=== PATIENT | male | born 1970 | race Caucasian/White ===

== ENCOUNTER 2017-11-24 11:49 | Observation (INO) ==
[2017-11-24] MEDS ORDERED: NORMAL SALINE 10 ML SYRINGE FLUSH IVP PRN ×2 (12:09→13:42)
[2017-11-24] MEDS ORDERED: Sodium Chloride 0.9% 1,000 ML PRIMARY IV ONE (12:09)
[2017-11-24 12:30] LABS: BASOPHILS # (AUTO) 0.02 10*3/UL; BASOPHILS % (AUTO) 0.3 % (0-1); EOSINOPHILS # (AUTO) 0.09 10*3/UL; EOSINOPHILS % (AUTO) 1.5 % (0-8); Hematocrit [HCT] 42.6 % (42.0-52.0); Hemoglobin [HGB] 15.1 g/dL (14.0-18.0); LYMPHOCYTES # (AUTO) 1.44 10*3/uL; MEAN CORPUSCULAR HEMOGLOBIN 30.6 PG (27-31); MEAN CORPUSCULAR HGB CONC 35.4 g/dL (33-37); MEAN CORPUSCULAR VOLUME 86.4 FL (80-90); MEAN PLATELET VOLUME 11.1 FL (7.4-12.2); MONOCYTES # (AUTO) 0.46 10*3/UL (0.3-0.8); MONOCYTES % (AUTO) 7.9 % (5-15); NEUTROPHILS % (AUTO) 65.3 % (50-80); RED BLOOD COUNT 4.93 10^6/uL (4.70-6.10)
[2017-11-24 12:31] LABS: PLATELET MORPHOLOGY COMMENT NORMAL MORPHOLOGY (NORM); RBC MORPHOLOGY COMMENT NORMAL MORPHOLOGY (NORM); WBC MORPHOLOGY COMMENT NORMAL MORPHOLOGY (NORM)
[2017-11-24] MEDS ORDERED: MORPHINE SULFATE 4 MG/1 ML IVP ONE (12:39)
[2017-11-24 12:43] LABS: BLOOD UREA NITROGEN 16 mg/dL (7-22); BUN/CREATININE RATIO 17.77 (6-20); SERUM ALBUMIN 4.6 g/dL (3.5-4.8)
--- NOTE | 2017-11-24 13:17 | DI ---
CT HEAD SCAN WITHOUT IV CONTRAST, 11/24/2017 12:10 PM : Clinical History: Stroke symptoms. Previous Exam: None at this facility. Scans are obtained from the foramen magnum to the vertex without IV contrast. The 4th, 3rd, and lateral ventricles are of normal size, shape, position, and contour for the patient 's age. There are no abnormal areas of increased or decreased density. There is no evidence of an acu te bland or hemorrhagic infarct. There are no extracerebral mantles or shift of the midline structure s. Bone window evaluation is normal. The paranasal sinuses are normal. READING: Normal non contrast CT head scan.
[2017-11-24] MEDS ORDERED: LIDOCAINE W/ SODIUM BICARB 0.5 ML SYR SUBD PRN (13:42)
--- NOTE | 2017-11-24 13:51 | DI ---
MRI BRAIN SCAN WITHOUT IV CONTRAST, 11/24/2017 1:05 PM: Clinical History: Right-sided stroke symptoms. Previous Exam: None at this facility. Sequences: Sagittal T1; Axial ELVIS T2 and FLAIR. Axial diffusion weighted images with ADC mapping were also performed. The 4th, 3rd, and lateral ventricles are of normal size, shape, position, and contour for this patien t's age. There are no focal areas of abnormally increased or decreased signal intensity. Diffusion we ighted imaging with ADC mapping is normal. There are no extracerebral mantels or shift of the midline structures. The paranasal sinuses are normal. Readin. Normal noncontrast MRI brain scan. There is no evidence of an acute hemorrhagic or bland infarct. 2. Diffusion weighted imaging with ADC mapping is normal.
--- NOTE | 2017-11-24 13:59 | PDOC ---
Neuro Symptoms / Deficit HPI - General Chief Complaint: Neurological Complaints Stated Complaint: stroke symptoms Date Seen by Provider: 11/24/17 Time Seen by Provider: 11:55 Source: POSITIVE: Patient, Spouse, EMS Exam Limitations: POSITIVE: No limitations Nurse's Notes Reviewed & Considered: Yes EMS Report Reviewed & Considered: Verbal - History of Present Illness Initial Comments: The patient is a 47-year-old male. 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 He states he got into his pickup and he felt "uncoordinated". He states he felt like his right hand and arm were "weak and numb". He had difficulty inserting the gordon to the ignition of his pickup into the ignition. He felt like the right side of his face was "numb and drooping". He called his on his cell phone and states that his speech was "garbled and slurred. "His confirms this. 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 Upon arrival of the paramedics the patient states he was feeling better and he states that he believes his symptoms have completely resolved upon arrival to the emergency room. He states that for the last 10 days he has had a headache, "mainly behind my right eye". He states he saw a primary care provider for this problem and was started on Augmentin for "sinusitis". Patient does not smoke. He has no known cardiopulmonary problems except some hypertension for which she takes amlodipine. He states he had a pulmonary embolism in 2006. No visual complaints. No GI or symptoms. 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 DENIES: Fever, Chills, Sweating, Chest Pain, Neck Pain, Back Pain, Fainting, Seizure, Altered Mental Status, Disoriented, Confused, Agitated, Trouble Concentrating, Trouble Thinking , Decreased Responsiveness, Unresponsive, Other Usual Ability to Walk/Stand: REPORTS: Walks w/o Assistance Usual Cognition: REPORTS: Alert & Oriented x3 Similar Symptoms Previously: No Recently seen/treated/hospitalized: No Any Prior Injuries Related to Current Complaint?: No - Patient Home Medications Home Medications: Home Medications Aspirin 325 mg PO DAILY 06/27/15 Etodolac [Lodine] 500 mg PO DAILY 06/27/15 - Patient Allergies Allergies/Adverse Reactions: Allergies 3 Allergy/AdvReac Type Severity Reaction Status Date / Time hydrocodone bitartrate Allergy HIVES Verified 11/24/17 12:22 [From Vicodin] Past Medical History - heen HEENT History: Denies History Cardiovascular History: DVTs Respiratory History: Pulmonary Embolism Gastrointestinal History: Denies History Genitourinary History: Denies History Endocrine History: Denies History Musculoskeletal History: Arthritis Neurological History: Denies History Blood Disorders: Denies History Psychiatric History: Denies History Cancer History: Denies History In Past Year Been Physically Harmed or Verbally Threatened: No History of MDRO: No Tobacco Use: Never Smoker Alcohol Use: Rarely Type of alcohol normally used: Beer In the Past 12 Months, Have Used or Abuse Any Substance: None Previous Surgical History: Yes Type / Date of Surgery: LEFT ANKLE X2, BILAT SHOULDER SURGERY Significant Family History: No pertinent family hx Past Medical History Reviewed: Reviewed - No Changes ROS - Limitations ROS Limitations: No Limitations Constitution: REPORTS: Denies Symptoms Cardiovascular: REPORTS: Denies Cardiac Symptoms Respiratory: REPORTS: Denies Resp Symptoms Neurological: REPORTS: Headache, Numbness, Weakness (Transient, right upper extremity and right side of face) Gastrointestinal: REPORTS: Denies GI Symptoms Endocrine: REPORTS: Denies Symptoms Musculoskeletal: REPORTS: Denies MS Symptoms Genitourinary: REPORTS: Denies Symptoms Eyes: REPORTS: Denies Symptoms ENT: REPORTS: Denies Symptoms Skin: REPORTS: Denies Skin Symptoms Lympathic: REPORTS: Denies Lympathic Symptoms Immunologic: POSITIVE: Denies Symptoms Psychiatric: POSITIVE: Denies Psych Symptoms Neuro Symptoms / Deficit Exam - General Appearance General Appearance: POSITIVE: No Acute Distress, Alert - HEENT HEENT: POSITIVE: Head Inspection Nml, Eyes Inspection Nml, Ears Inspection Nml, Nose Inspection Nml, Oral/Dental Inspect. Nml, Pharynx Inspect. Nml, PERRL, EOMI - Pupil Size Pupil Size: 4 mm: Bilateral (PERRLA) - Neuro / Psych Higher Functions: POSITIVE: Oriented to Person, Oriented to Place, Oriented to Time, Normal Speech, Normal Cognition, Appropriate Mood, Appropriate Affect. NEGATIVE: Disoriented to Person, Disoriented to Place, Disoriented to Time, Speech Abnormalities, Cognition Abnormalities, Depressed Mood, Depressed Affect , Abnml Response to Command, No Response to Command, Eyes Open to Command, Slow Response to Command, Inapp Response to Command, Expressive Aphasia, Receptive Aphasia, Abnml Response to Pain, Withdraws to Pain, Flexor to Pain, Extensor to Pain, No Response to Pain, Dysarthria, Other Cranial Nerves: POSITIVE: Normal As Tested, No Evidence of Acute CVA Cerebellar: POSITIVE: Normal As Tested Peripheral Exam: POSITIVE: Sensation Normal, Motor Normal, Reflexes Normal - Neck Neck: POSITIVE: Supple, Non-Tender, No Carotid Bruit - Respiratory Respiratory: POSITIVE: No Respiratory Distress, Breath Sounds Normal - Cardiovascular Cardiovascular: POSITIVE: Regular Rate & Rhythm, Heart Sounds Normal Peripheral Pulses: Radial (R): 2+, Radial (L): 2+ - Abdomen Abdomen: Soft: (All Quadrants), Normal Bowel Sounds: (All Quadrants), Denies Tenderness: (All Quadrants), No Splenomegaly: (All Quadrants), No Hepatomegaly: (All Quadrants), No Guarding: (All Quadrants), No Rebound: (All Quadrants), No Palpable Pulse: (All Quadrants), No Palpabale Mass: (All Quadrants), No Distention: (All Quadrants), No Rigidity: (All Quadrants) - Skin Skin: POSITIVE: Intact, Normal For Race, Warm, Dry, No Rash - Extremities Extremity: Non-Tender: (All Extremities), Normal ROM: (All Extremities), Normal Inspection: (All Extremities) Neuro Symptom/Deficit Progress - Results Reviewed by me Xrays/CTs/US Reviewed by me: Yes Discussed with Radiologist: Yes Radiology Findings: CT scan head without contrast read as normal by radiologist. MRI head without contrast read as normal by radiologist. Lab Results Reviewed by Me: Yes (CBC, CMP, troponin all normal) CBC and BMP: 11/24/17 12:29 11/24/17 12:29 EKG Interpreted/Reviewed By Me:: Yes (normal sinus rhythm; normal) EKG Interpretation:: POSITIVE: Normal Sinus Rhythm, Normal Rate, Normal Intervals, Normal [place], Normal QRS, Normal ST/T - Patient's Progress Pain Medication Addressed: POSITIVE: Yes (Patient given 4 mg of morphine sulfate IV for headache) School/Work Release Addressed: POSITIVE: Not Applicable Re-Examine Time:: 13:30 Re-Examine Comment: Patient has had no further neurologic symptoms while in the emergency room. Case discussed with hospitalist, Dr. Allen, and patient is admitted for further observation, evaluation and treatment. Headache less. Status: POSITIVE: Improved, Re-Examined, Pain Relieved Antibiotics Given: No CVA/Syncope Quality Measure Initiative: POSITIVE: EKG - Consult Consult (If Yes, Name of Consulting MD & Time Called): Yes (Dr. Allen, hospitalist, [id number]) Consulting MD will see pt:: POSITIVE: [facility]mit Counseled: POSITIVE: Patient, Family, RE: Lab Results, RE: Radiology Results, RE : DX, RE: Need for F/U Patient Care Time - Estimated PCT Patient Care Time (In Minutes): 60 Vital Signs - Recent Vital Signs Vital Signs: Vital Signs (Last 8 hours) Temp Pulse Pulse Resp BP BP Pulse Ox 11/24/17 12:25 97.9 F 77 16 137/89 95 11/24/17 11:55 96.8 F 77 18 137/89 95 - VS Reviewed Vital Signs Reviewed: Yes Discharge Clinical Impression: Transient ischemic attack Discharge Disposition: Admit to Inpatient Condition: Stable Date Decision to Admit to Inpatient: 11/24/17 Time Decision to Admit to Inpatient: 13:30
[2017-11-24] MEDS ORDERED: CLOPIDOGREL 75 MG TABLET PO ONE (15:03)
[2017-11-24] MEDS ORDERED: KETOROLAC 15 MG/1 ML VIAL IVP ONE (15:04)
[2017-11-24] MEDS ORDERED: Prochlorperazine Edisylate Inj 10 MG in Sodium Chloride 0.9% 500 ML IV ONE (15:04)
--- NOTE | 2017-11-24 15:11 | PDOC ---
HPI - History of Present Illness Date of Service: 11/24/17 Time of Service: 15:05 Chief Complaint: Right facial weakness History of Present Illness: This very pleasant 47-year-old male with a prior history of pulmonary emboli and DVT, in relation to prior ankle surgeries, who stays on an aspirin, and also has arthritis, who presented today with acute onset of right facial numbness, slight facial droop and word slurring and right arm weakness and numbness and tingling at around 1045 this morning. 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 It is harder for him to describe the words. He felt that was very strange. He went to start the truck , and had trouble getting the keys into the admission. He felt all this along with the numbness, tingling of the right face and right arm was very abnormal and he started to drive towards a hospital. He pulled over, called 911, was brought in for evaluation. A head CT scan here was negative for acute stroke or bleed. He is notably on an aspirin daily to help prevent another blood clot in his lungs. An MRI scan of the brain was negative for acute stroke. He has had a preceding 10 day history of headache that has been described as possible migraine headache or sinusitis. He also feels some fullness under his right mandible and neck region for about the last month. He has not had any fevers chills or cough. The patient is never had anything like this happen before does not have a family history of heart disease. He does not have any cholesterol problems, he does not have diabetes. He does not smoke. He rarely drinks alcohol. He does not have known atrial fibrillation and does not have palpitations. All of the symptoms have resolved and did so spontaneously by the time he was at the hospital. Past Medical History Medical History: 1. Arthritis. 2. History of pulmonary embolism and DVT Surgical History: 1. Left ankle surgeries, multiple. 2. 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 Pertinent Family History: Father had a heart attack. Past Social History: Does not smoke. Quit chewing remotely. 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 Rarely drinks alcohol. Tobacco Use: Never Smoker In the Past 12 Months, Have Used or Abuse Any of the Following Substance: None Alcohol Use: Rarely Medication / Allergies Home Medications: Home Medications 3 Medication Instructions Recorded Confirmed Type Aspirin 325 mg PO DAILY 06/27/15 11/24/17 History Etodolac [Lodine] 500 mg PO DAILY 06/27/15 11/24/17 History Allergies/Adverse Reactions: Allergies 3 Allergy/AdvReac Type Severity Reaction Status Date / Time hydrocodone bitartrate Allergy HIVES Verified 11/24/17 12:22 [From Vicodin] Review of Systems - Review of Systems All Systems: Reviewed & No Additional Complaints Except as Stated (I did a 12 point review systems and it was negative other than that discussed in history present illness and that noted below.) - Mouth/Throat Mouth/Throat Exam: REPORTS: Other (Some neck tenderness mostly along the right aspect of the mandible.) - Respiratory Respiratory: REPORTS: Negative System Review - Cardiovascular Cardiovascular: REPORTS: Negative System Review - Gastrointestinal Gastrointestinal / Abdominal: REPORTS: Negative System Review - Genitourinary Genitourinary: REPORTS: Negative System Review - Musculoskeletal Musculoskeletal: REPORTS: Other (Arthritis of several joints) - Neurological Neurologic: REPORTS: Headache (Present for the last 10 days with some sinus tenderness. Has had some nausea from his headaches as well.) Exam - Vitals Vital Signs: Vital Signs Temperature 97.6 F Temperature Source Temporal Artery Scan Pulse Rate [Pulse Oximeter] 69 Pulse Rate 69 Respiratory Rate 14 Blood Pressure [Left Arm] 126/78 Blood Pressure 126/78 Pulse Ox 93 Oxygen Delivery Method Room Air Height 5 ft 8 in Weight 251 lb 3.2 oz - General General Appearance: No Acute Distress, Cooperative - Head Head Exam: Normal Inspection, Normocephalic, Atraumatic - Eye Eye Exam: POSITIVE: No Scleral Icterus - ENT ENT Exam: POSITIVE: Mucous Membranes Moist - Neck Neck Exam: Normal Inspection, No Tenderness, No Lymphadenopathy, Lymphadenopathy (possible submandibular fullness on right side?), No Thyromegaly Results - Labs CBC and BMP: 11/24/17 12:29 11/24/17 12:29 - EKG Data -: EKG Interpreted by Me (I have ordered an EKG and it is pending.) - Imaging Status: Image Reviewed by Me (I looked at the CT scan of the head and there is no acute blood.), Report Reviewed by Me (I reviewed the MRI scan and it is negative for stroke.) Assessment and Plan - Patient Problems (1) Transient ischemic attack Current Visit: Yes Status: Acute Code(s): G45.9 - Transient cerebral ischemic attack, unspecified (2) Headache Current Visit: Yes Status: Acute Code(s): R51 - Headache Qualifiers: Headache type: unspecified Headache chronicity pattern: acute headache Intractability: intractable Qualified Code(s): R51 - Headache (3) Submandibular gland hypertrophy Current Visit: Yes Status: Acute Code(s): K11.1 - Hypertrophy of salivary gland (4) History of pulmonary embolism Current Visit: Yes Status: Acute Code(s): Z86.711 - Personal history of pulmonary embolism - Assessment / Plan Additional Assessment/Plan Details: Is a very difficult situation, as this is a young patient but can be on several blood thinners as a result of this presentation. Likely this is a transient ischemic attack, but could also be in the differential of complex migraine headache. For now, I think we need to treat this as if it's a transient ischemic attack, complete MRA scans of the head and the neck to evaluate carotid arteries and cerebral vasculature. Echocardiogram to evaluate for potential carotid source of emboli. Also telemetry monitoring to look for atrial fibrillation. I have also ordered an EKG. Because he is on aspirin every day, I think we need to put him on Plavix for now. Start high-dose statin. If indicated, antihypertensive therapy. For now permissive hypertension. Try abortive therapy without steroid as patient states he has side effects from steroids with Toradol and with Compazine. Given the submandibular gland hypertrophy on the right, I'll get a soft tissue scan of the neck to look at this more in depth. We'll do that with contrast. If the patient has underlying atrial fibrillation, it would be beneficial for him to go on something like the novel oral anticoagulants for prevention of stroke and pulmonary emboli, but this could definitely increase his bleeding risk and I discussed this with him. The patient and his family agreed with the plan. He may have had hypercoagulation study done with his primary care provider, I' ll call and find out.
[2017-11-24] MEDS ORDERED: Prochlorperazine Edisylate Inj 10mg/2ml vial IVP ONE (15:15)
[2017-11-24] MEDS ORDERED: POTASSIUM CHLORIDE 20 MEQ TAB PO ONE (15:53)
--- NOTE | 2017-11-24 18:57 | DI ---
MR ANGIOGRAPHY OF THE [place], 11/24/2017 1:42 PM: Clinical History: Right-sided stroke symptoms. TIA. Previous Exam: None at this facility. High resolution axial 3D thin slice time of flight scans are performed for the arterial phase. 3D MIP S reconstructions are obtained. The vertebral arteries are co-dominant. There is no basilar tip aneurysm or aneurysm arising from the vertebral-basilar branches. There are no identifiable posterior communicating arteries. No anterior communicating artery is identified. The A1 and A2, and the M1 through M3 branches bilaterally are nor mal. Reading: Normal MR angiogram scan of the [place].
--- NOTE | 2017-11-24 19:00 | DI ---
MR ANGIOGRAM OF THE NECK, 11/24/2017 1:42 PM: Clinical History: Right-sided hemiparesis. TIA. Previous Exam: None at this facility. Axial 2D TOF and axial 3D images are reconstructed into a 3D MIP format. Scans are performed from below the sternal notch to of the neck to the base of the skull without cont rast. The common carotid arteries are normal from their origins to the bifurcations. The internal and exter nal carotid arteries in the neck region are normal. The internal carotid arteries from the base of th e skull to the cavernous sinuses are also normal. Both vertebral arteries are visualized and are norm al. The vertebral arteries are codominant. READING: Normal MR angiogram of the carotid and vertebral arteries. No occlusive disease is identified.
[2017-11-24] MEDS ORDERED: ATORVASTATIN 40 MG TABLET PO SCH (21:00)
[2017-11-25 05:27] LABS: HEMOGLOBIN A1C 6.54 % (4.2-6.0)
[2017-11-25 05:31] LABS: CHOL/HDL RATIO 4.4 RATIO (0-4.0)
[2017-11-25] MEDS ORDERED: CLOPIDOGREL 75 MG TABLET PO SCH (09:00)
[2017-11-25] MEDS ORDERED: Prochlorperazine Edisylate Inj 10mg/2ml vial IVP ONE (09:06)
[2017-11-25] MEDS ORDERED: diphenhydrAMINE 50 MG/1 ML VIAL IVP ONE (09:07)
--- NOTE | 2017-11-25 09:13 | PDOC(PROG) ---
Date and Time of Service: 11/25/2017 9:15 AM Interval History: Subjective Patient came into the hospital history of headache has been going on for about 10 days. More like a pressure behind both eyes he said he went to his primary and they thought that he had sinusitis and was put on Augmentin. There was no fever, there is no history of drainage to the back of the throat. Yesterday he was at work and he had problems saying what he wanted to say then he went to truck and he noticed some numbness and tingling in the right side of the face and the arm then after that he had some numbness also in his right leg things resolved after about 20 minutes. He did notice also that the headache that he had is more prominent on the right side. Because of all the symptoms he came into the ER and was admitted. He feels better in terms of the tingling and the numbness. The only thing that's bothering him is the headache. He rates his headache maybe about 7 out of 10. He said maybe the Compazine helps yesterday but the morphine didn't Objective : Data - Labs CBC and BMP: 11/24/17 12:29 11/24/17 12:29 Objective : Exam - General General Appearance: No Acute Distress, Cooperative, Obese - Head Head Exam: Normal Inspection, Atraumatic - Eye Eye Exam: Normal Appearance - ENT ENT Exam: Normal Exam - Neck Neck Exam: Normal Inspection - Respiratory Respiratory Exam: Clear to Auscultation - Bilaterally - Cardiovascular Cardiovascular Exam: RRR - GI/Abdominal GI/Abdominal Exam: Normal Bowel Sounds, Non Tender, Non Distended, Soft, No Organomegaly - Rectal Rectal Exam: Deferred - External Exam: Deferred - Extremities Extremities Exam: Normal Inspection - Back Back Exam: Normal Inspection - Neurological Neurological Exam: Alert, Oriented x 3, Reflexes Normal, CN II-XII Intact, No Facial Droop, Speech Intact / Clear, Moves All Extremities Equally - Psychiatric Psychiatric Exam: Normal Affect - Integumentary Integumentary Exam: Normal Color Assessment and Plan - Patient Problems (1) Transient ischemic attack Current Visit: Yes Status: Acute Comment: His symptoms looks like TIA. These are resolved imaging all are negative. A CT of the neck and the sinuses are ordered today. CT of the neck was also ordered. He was put on Plavix. The difficult thing to explain is the headache. Either it's related or unrelated. The unusual thing about the headache is he said he doesn't have usually headaches and there no history of migraines before and he said there is also family history of migraines. Code(s): G45.9 - Transient cerebral ischemic attack, unspecified (2) Headache Current Visit: Yes Status: Acute Comment: Unsure about the etiology. I think will give him a dose of Compazine and Benadryl and he is okay with that. See whether that would help his symptoms. After I get the CT scan results I'll speak with neurology in [place] and see their recommendation. I did suggest also the outpatient consultation with them later on. Code(s): R51 - Headache Qualifiers: Headache type: unspecified Headache chronicity pattern: acute headache Intractability: intractable Qualified Code(s): R51 - Headache
--- NOTE | 2017-11-25 09:56 | DI ---
CT SCAN OF THE FACE WITHOUT AND WITH IV CONTRAST, 11/25/2017 7:00 AM : Clinical History: Right submandibular swelling. Chewing tobacco dependence. Previous Exam: None at this facility. Scans are obtained from below the sternal notch to the petrous pyramids without and with IV contrast. Sagittal and coronal images are generated. 95 ml of Isovue 300 was injected IV. The visualized cervical vertebral bodies are of normal height and size. The visualized disc spaces ar e normal. The carotid and vertebral arteries are normal. Nonocclusive plaque is present in the right carotid bulb. There are no soft tissue masses on either side. The right side of the tongue ascends cisneros periorly within the left side on the postcontrast scans and this probably is positional. The noncontr ast scans show a symmetric appearance of the tongue. At the level of the palatopharyngeus and styloph aryngeus muscles, there is asymmetry with the left side being more prominent than the right. There is no differential enhancement between the right and left sides of this area following contrast adminis tration. If further evaluation is required clinically, then laryngoscopy would be indicated. No lymph adenopathy is identified. The thyroid gland, the submandibular glands, and the parotid glands are nor mal. READIN. CT scans of the facial structures including the submandibular glands is normal. No adenopathy or mass is identified. On the postcontrast scans, the right side of the tongue is more elevated than the left side but it is symmetric on the noncontrast scans and this difference is felt to be secondary t o positioning of the tongue following IV contrast administration. 2. There is slight asymmetry at the level of the palatopharyngeus and stylopharyngeus muscles. The l eft side is more prominent than the right but there is no enhancement of either side with contrast. F urther evaluation if clinically indicated would be with laryngoscopy.
--- NOTE | 2017-11-25 10:15 | DI ---
CT SCAN OF THE NECK WITHOUT AND WITH IV CONTRAST, 11/25/2017 7:00 AM : Clinical History: Right submandibular gland swelling. History of chewing tobacco. Previous Exam: None at this facility. Scans are obtained from below the sternal notch to the petrous pyramids with IV contrast. Sagittal an d coronal images are generated. This is the same bolus of contrast used for the CT scan of the face. The cervical vertebral bodies are of normal height and size. The disc spaces are normal. The carotid and vertebral arteries are normal except for nonocclusive minimal plaquing in the right carotid bulb. There are no soft tissue masses on either side. No lymphadenopathy is identified. The thyroid gland is normal. The submandibular and parotid glands are also unremarkable. The vocal cords are normal. As noted on the CT scans of the face, there is asymmetry between the right and left stylopharyngeus and palatopharyngeus muscles with the left side being more prominent than the right side. There is no en hancement of either side with IV contrast. READIN. As noted on the CT scans of the face, there is asymmetry with a more prominent appearance of the left stylopharyngeus and palatopharyngeus muscles. If further evaluation is required, then laryngosco py is recommended. 2. The remainder of the study is normal.
[2017-11-25] MEDS ORDERED: ASPIRIN 325 MG TABLET PO ONE (13:36)
--- NOTE | 2017-11-25 16:25 | DI ---
MR VENOUS ANGIOGRAPHY OF THE BRAIN, 11/25/2017 12:44 PM: Clinical History: Headaches. History of pulmonary embolism. Previous Exam: None at this facility. High resolution sagittal PS 3D MRV thin slice scans are performed for the venous phase. 3D MIPS recon structions are obtained. The superior sagittal sinus is only seen toward the convexity and has a inhomogeneous pattern. The in ferior sagittal sinus is visualized along with the internal cerebral veins and the vein of Herber and straight sinus. The transverse sinuses are also visualized. Cortical venous branches are visualized a lthough we up to the region of the superior sagittal sinus. Arterial branches are visualized in the n lisandra and up to the level of the cavernous carotid arteries. Readin. The superior sagittal sinus is not visualized in this is consistent with thrombosis of the superi or sagittal sinus. Cortical veins are visualized bilaterally extending toward the superior sagittal s inus territory. 2. The inferior sagittal sinus, the internal cerebral veins, the vein of Herber, straight sinus, and the transverse sinuses are visualized.
[2017-11-25 16:45] VITALS: BP 134/93; RESP 20; TEMP 97.8; O2SAT 95
[2017-11-25] MEDS ORDERED: ENOXAPARIN SODIUM 120 MG/0.8 ML SYRINGE SUBCUT SCH (17:00)
--- NOTE | 2017-11-25 18:10 | DCSUMMARY ---
Hospitalization Summary Admit Date: 11/24/2017 Discharge Date: 11/25/17 Hospital Course: Transfer diagnoses 1. Superior sagittal vein thrombosis 2. History of previous PE and DVT 3. History of arthritis 4. History of multiple left ankle surgeries 5. 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 Right ventricular enlargement on echo done today. 7. more prominent appearance of the left stylopharyngeus and palatopharyngeus muscles on CT neck unclear significance Hospital course This is a 47 years old male with medical history significant for previous history of PE and DVT who is on aspirin for it also history of arthritis. Who presented to the hospital with history of headaches that going on for 10 days. He went to his primary last week he was put on Augmentin for possibility of sinusitis. On the day of admission he developed right facial numbness, somewhat slurring of speech also numbness and tingling on the right side. He said while at work he had problem describing what should be easy for him. He felt that was very strange. He went to start his truck and had trouble getting the keys into the ignition. Then he started to feel the numbness in the right face right arm and then also he had some tingling and numbness in the right leg. Because of that he was brought to the emergency. The symptoms did not last long. However he continued to have the headaches. He was admitted to the hospital by Dr. Allen please see his note. A CT of the head was negative for stroke. An MRI done and read initially as negative. His exam was not remarkable. Initially he was giving Plavix and Lipitor. I saw him the next day his main complaint was headache. His physical exam was not much remarkable there was no focal weakness. He had already a CT of the neck and sinuses done this morning ordered by Dr. Allen. After the results I spoke with her neurologist in [place] who recommended MRV. We did the MRV which raised the possibility of superior sagittal vein thrombosis. OUR radiologist Dr. Arias did review the MRI from yesterday and did show hyperintensities in the superior sagittal vein which was not reported yesterday that suggested this may be subacute thrombosis. I did push the films to Dr. Ely who reviewed the films and concur with the diagnosis. He suggested putting him on Lovenox and Coumadin. We did discuss transfer however they don't have beds. I did speak with the neurologist Dr. Moura in [place] also spoke with Dr. Dinorah dee- ICU and he accepted the patient. I spoke with the patient about transfer and he agreed on transfer. We did give him Lovenox. He did have a thrombophilia profile done yesterday. CT of the neck showed more prominent appearance of the left stylopharyngeus and palatopharyngeus muscles. which is of unclear significance. Laboratory Results 11/25/17 11/25/17 11/25/17 Range/Units 04:50 04:50 04:50 Mean Blood Glucose 131.782 mg/dL Hemoglobin A1c 6.54 H (4.2-6.0) % Triglycerides 118 (44-200) mg/dL Cholesterol 141 (120-200) mg/dL LDL Cholesterol, Calc 85.400 mg/dL VLDL Cholesterol 23 (0-40) mg/dL HDL Cholesterol 32 L (40-150) mg/dL Cholesterol/HDL Ratio 4.40 H (0-4.0) RATIO TSH 2.90 (0.2700-4.2000) uIU/mL Free T4 1.14 (0.93-1.71) ng/dL Discharge instruction Diet regular Activity as started Medications Active Medications Atorvastatin Calcium (Lipitor) 80 mg PO BEDTIME [facility] Last Admin: 11/24/17 20:27 Dose: 80 mg Enoxaparin Sodium (Lovenox Inj) 120 mg SUBCUT Q12H [facility] Last Admin: 11/25/17 16:30 Dose: 120 mg Lidocaine HCl (Lidocaine Buffered Inj) 0.5 ml SUBD ONCE PRN PRN Reason: IV Starts Sodium Chloride (Saline Flush) 5 - 20 ml IVP BID PRN PRN Reason: Flush Last Admin: 11/25/17 10:21 Dose: 10 ml Follow-up per [facility] post discharge. Condition at transfer was stable for transfer Exam - Vitals Vital Signs: Vital Signs Temperature 97.8 F Temperature Source Temporal Artery Scan Pulse Rate [Apical] 70 Pulse Rate [Pulse Oximeter] 104 Pulse Rate [Pulse Oximeter 77 Bilateral Radial] Pulse Rate 64 Respiratory Rate 20 Blood Pressure [Left Arm] 134/93 Blood Pressure 126/78 Pulse Ox 95 Oxygen Delivery Method Room Air Height 5 ft 8 in Weight 254 lb Patient Problems - Patient Problem List (1) Transient ischemic attack Current Visit: Yes Status: Acute Code(s): G45.9 - Transient cerebral ischemic attack, unspecified Category: Medical (2) Headache Current Visit: Yes Status: Acute Code(s): R51 - Headache Qualifiers: Headache type: unspecified Headache chronicity pattern: acute headache Intractability: intractable Qualified Code(s): R51 - Headache Category: Medical
[2017-11-29 11:43] LABS: THROMBIN TIME 16
[2017-11-29 11:44] LABS: FIBRIONGEN EQUIVALENT UNITS 0.47; PROTEIN C ACTIVITY 118; SOLUBLE FIBRIN MONOMER 11
[2017-11-29 11:45] LABS: PROTEIN S ANTIGEN 112
== END 2017-11-25 19:52 | disposition short-term general hospital (02) ==
LOC: ER 11:49 → MED/SURG 11:49
PROVIDERS: ADMIT Family Medicine; ATTEND Family Medicine